=== PATIENT | female | born 1980 | race American Indian/Alaskan Native ===

== ENCOUNTER 2018-12-25 04:44 | Emergency (ER) | payer OTHER ==
[2018-12-25 04:51] VITALS: BP 164/115
[2018-12-25] MEDS ORDERED: IBUPROFEN PO ONE ×2 (05:30→05:34)
[2018-12-25 06:03] LABS: HCG Qualitative,Urine Negative (Negative)
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
[2018-12-25] MEDS ORDERED: NORCO 5/325 PO STA (06:57)
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
== END 2018-12-25 07:25 | disposition home or self-care (01) ==
LOC: ED 04:44
DX: M54.2 Cervicalgia (principal); M54.9 Dorsalgia, unspecified; I10 Essential (primary) hypertension; J45.909 Unspecified asthma, uncomplicated; Z79.899 Other long term (current) drug therapy; V89.2XXA Person injured in unspecified motor-vehicle accident, traffic, initial encounter; Y93.89 Activity, other specified; Y92.488 Other paved roadways as the place of occurrence of the external cause; Y99.8 Other external cause status
CPT/HCPCS: 72040; 72100; 81025; 99284